=== PATIENT | female | born 1965 | race Two or more races ===

== ENCOUNTER 2018-10-28 12:12 | Emergency (ER) | payer BC ==
[~2018-10-28] VITALS: Ht 170.2 cm; Wt 68.5 kg
--- OUTSIDE RECORDS SUMMARY | 2018-10-28 12:16 | XMS REPORT | Clinical Summary ---
Author Author [facility] Address Unknown Phone Unavailable Care Team Providers Care Beater Operator Name Role Phone Kendrick Kern DO PCP Allergies No Known Allergies Medications End Date Status Medication Sig Dispensed Refills Start Date Active aspirin 325 MG tablet Take 325 mg 0 by mouth daily. Active cyclobenzaprine Take 5 mg by 0 (FLEXERIL) 5 mg tablet mouth 3 (three) times a day as needed for muscle spasms. Active ibuprofen (ADVIL,MOTRIN) Take 200 mg 0 200 MG tablet by mouth every 6 (six) hours as needed for mild pain. Active Problems Problem Noted Date Internal hemorrhoids with complication 04/02/2016 Abdominal pain, generalized 04/02/2016 Encounter for screening colonoscopy 04/02/2016 Constipation 04/02/2016 Rectal bleed 04/02/2016 Rectal bleeding 04/02/2016 Social History Date Tobacco Use Types Packs/Day Years Used Never Assessed Sex Assigned at Date Recorded Not on file Industry Job Start Date Occupation Not on file Not on file Not on file Travel End Travel History Travel Start No recent travel history available. Last Filed Vital Signs Not on file Plan of Treatment Health Maintenance Due Date Last Done Comments CERVICAL CANCER SCREENING 11/20/1984 BREAST CANCER SCREENING 11/20/2013 SHINGLES VACCINES (#1) 11/20/2013 INFLUENZA VACCINE 09/15/2018 COLONOSCOPY SCREENING 04/20/2021 04/20/2016 Results Not on fileafter 10/27/2017 Insurance Type Payer Benefit Subscriber ID Effective Phone Address Plan / Dates Group PPO BCBS LOKESH xxxxxxxxxxxx 2016- ERNESTO SINCLAIR Present Advance Directives For more information, please contact: [phone] Patient [employer]own Explanation Type Date Recorded Advance Directives, Living Will and Medical Power of Casing Puller
--- OUTSIDE RECORDS SUMMARY | 2018-10-28 12:16 | XMS REPORT ---
[facility] Address Unknown Phone Unavailable Care Team Providers Care Global Sales Manager Name Role Phone Unavailable Unavailable Problems This patient has no known problems. Allergies, Adverse Reactions, Alerts This patient has no known allergies or adverse reactions. Medications This patient has no known medications. Results Test Description Test Time Test Comments Text Results Atomic Results Result Comments SCR MAMM BILATERAL ROMAN CAD DIGITAL 2018-06-14 14:00:37 - SCR MAMM BILATERAL ROMAN CAD DIGITALBILATERAL DIGITAL SCREENING MAMMOGRAM 3D/2D WITH CAD: 06/14/2018CLINICAL: Asymptomatic. Digital breast tomosynthesis was performed in addition to routine CC and MLO views. Current mammographic images were evaluated by either a I-Pulse M-Vu or a [employer] ImageChecker CAD (computer aided detection system). Comparison is made to exams dated 06/12/2017 mammogram, 05/27 mammogram, and 05/13/2015 mammogram - [facility]. There are scattered fibroglandular tissues in both breasts. No suspicious mass, architectural distortion, malignant type calcification, or lymph node abnormality detected. Breast architecture is stable compared to prior exams.IMPRESSION: NEGATIVEThere is no mammographic evidence of malignancy. Resume annual screening mammography in one year. Malick vitale/penrad:06/14/2018 14:00:37 Senior Director Insight: Olena STOKES, [facility]: BIRADS 1-2 Normal Mammogram BI-RADS: 1 Negative
[2018-10-28] MEDS ORDERED: ATENOLOL50 MG (14:20)
[2018-10-28] MEDS ORDERED: SODIUM CHLORIDE 0.9% 50ML 50 ML ONE (15:06)
[2018-10-28] MEDS ORDERED: IOPAMIDOL 370 MG/ML 200 ML INFUS..BTL INJ ONE (15:06)
--- NOTE | 2018-10-28 16:22 | Diagnostic Imaging Report ---
EXAMINATION: CT of the chest with contrast, PE protocol. TECHNIQUE: Spiral CT images of the chest were performed from the lung apices through the level of the adrenal glands after the IV administration of 100 cc of Isovue 370. Thin section reconstructions were obtained with special concentration on the pulmonary arteries. Coronal and sagittal reformatted images were obtained COMPARISON: <none> CLINICAL HISTORY:Back and neck pain, heavy pressure in chest for 3 days DISCUSSION: Lungs: No filling defects are identified in the main, right or left pulmonary arteries to their segmental levels, to suggest pulmonary embolism. No consolidation or pulmonary masses. No nodules. Airways are clear, without bronchial lesions. Pleura: <There is no evidence of pleural effusion or pneumothorax.> Heart and mediastinum: Thyroid is unremarkable. Heart size is normal. No pericardial effusion. Aorta is nonaneurysmal. Main pulmonary artery is normal in caliber. Lymph nodes: No mediastinal, hilar or axillary adenopathy Abdomen: The visualized portions of the liver, spleen, ankle., Kidneys and adrenal glands are unremarkable. Bones and soft tissues: No aggressive lytic lesions. Soft tissues are grossly unremarkable. IMPRESSION: No CT evidence of pulmonary embolism. Essentially clear lungs. Signed by: Dr. Octavio Cortez M.D. on 10/28/2018 4:19 PM
[2018-10-28 17:51] VITALS: BP 141/85
== END 2018-10-28 17:51 | disposition home or self-care (01) ==
LOC: FSED 12:12
DX: R07.89 Other chest pain (principal); I45.10 Unspecified right bundle-branch block; R94.31 Abnormal electrocardiogram [ECG] [EKG]
CPT/HCPCS: 71260; 80053; 81003; 82553; 84484; 85025; 93005; 99284; Q9967

== ENCOUNTER → 2020-04-11 | Outpatient (CLI) | payer BC ==
[~2020-04-11] MED LIST: ATENOLOL50 MG; IOPAMIDOL 370 MG/ML 200 ML INFUS..BTL INJ ONE; SODIUM CHLORIDE 0.9% 50ML 50 ML ONE
[2020-04-11 15:14] LABS: BLOOD UREA NITROGEN 15 mg/dL (7-26); BUN/CREATININE RATIO 19 (6-25); CREATININE, SERUM 0.79 mg/dL (0.57-1.11); EST GLOMERULAR FILTRATION RATE > 60 ML/MIN (60-)
== END ==
LOC: CT 14:35
PROVIDERS: ATTEND Internal Medicine Cardiovascular Disease
DX: I71.2 Thoracic aortic aneurysm, without rupture (principal)
CPT/HCPCS: 36415; 71275; 82565; 84520; Q9967